=== PATIENT | female | born 1960 | race Caucasian/White ===

== ENCOUNTER 2016-11-15 18:40 | Emergency (ER) ==
--- NOTE | 2016-11-15 19:02 | PROVIDER DOCUMENTATION ---
HPI-Cardiopulmonary Arrest - General Source: EMS - History of Present Illness-C/P Arrest Reason for Code Blue?: full arrest Witnessed arrest?: No Noted by:: family Bystander CPR?: Yes CPR initiated before doctor arrival?: Yes Down-time before ACLS?: unknown Initial Findings: PEA Caesar, no respirations Treatment initiated prior to doctor arrival?: Initiated oxygen, Initiated BVM, Initiated CPR/thumper, Initiated defibrillated, Initiated IV fluids, Initiated epinephrine #mg, Initiated sodium bicarb # amps, Initiated other (calcium, D50, Narcan) Similar Symptoms Previously?: No - Pre-hospital Treatment EMS Initial Findings:: unresponsive, other rhythm (PEA), no respirations EMS Initial HR: 0 EMS Initial D-stick: low, 46 after amp of D50 EMS Initial EKG Rhythm: PEA Pre-hospital Treatment: Initiated oxygen, Initiated BVM, Initiated CPR, Initiated defibrillated, Initiated IV fluids, Initiated epinephrine, Initiated other (calcium, D50, Narcan) - Pronouncement CPR discontinued. Patient pronounced at: 18:47 Family notified?: Yes <Nikki Hobson - Last Filed: 11/15/16 19:49> <Humberto Negro - Last Filed: 11/15/16 20:11> - General Chief Complaint: Full Arrest Stated Complaint: FULL ARREST Time Seen by Provider: 11/15/16 18:38 Allergies/Adverse Reactions: Allergies Allergy/AdvReac Type Severity Reaction Status Date / Time latex Allergy RASH Verified 08/30/15 22:38 Sulfa (Sulfonamide Allergy Unknown Verified 08/30/15 16:29 Antibiotics) terazosin Allergy Unknown Verified 08/30/15 16:29 Home Medications: Home Medication List Medication Instructions Recorded Confirmed Last Taken Type Amitriptyline HCl 75 mg PO BID 08/30/15 08/30/15 Unknown History Ascorbic Acid [Vitamin C] 500 mg PO BID 08/30/15 08/30/15 Unknown History Esomeprazole [Nexium] 40 mg PO DAILY 08/30/15 08/30/15 Unknown History Fish Oil/Dha/Epa [Fish Oil 1,200 1,200 mg PO BID 08/30/15 08/30/15 Unknown History mg Fish Oil] Gabapentin 300 mg PO 4XDAY 08/30/15 08/30/15 Unknown History Ipratropium/Albuterol INH 20 mcg INH DIRECTED 08/30/15 08/30/15 Unknown History [Combivent Respimat Inhaler] Loradil Aenolzen 12 mcg PO BID 08/30/15 08/30/15 Unknown History Lorazepam 0.5 mg PO BID 08/30/15 08/30/15 Unknown History Mometasone Nasal [place] [Nasonex 1 spray LOVE DAILY 08/30/15 08/30/15 Unknown History Nasal [place]] Montelukast [Singulair] 10 mg PO QPM 08/30/15 08/30/15 Unknown History Paroxetine HCl [Paxil] 20 mg PO DAILY 08/30/15 08/30/15 Unknown History Tiotropium [place] Inhaler 1 puff INH RTDAILY 08/30/15 08/30/15 Unknown History [Spiriva] Tramadol [Ultram] 50 mg PO BID PRN 08/30/15 08/30/15 Unknown History - History of Present Illness-C/P Arrest Initial Comments: 56 year old F presents to the ED in cardiac arrest. Per EMS initial call was 1743. Pt was found down unresponsive with CPR started by family. Last time family talked to pt was 1300. EMS arrived on scene at 1752. PT was found in PEA with no respirations. 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 Pt was defibrillated once at 360 angela. Pt was in asystole after defibrillation. On arrival to ED pt was in asystole. states that pt has not been feeling well the past few days and wanted him to go get her some Robatussin and BC powders. He states that around 1300 her medications came in the mail. PT was fine at this time. He states that he fell asleep and woke up and found her in the bed unresponsive around 1730. (Nikki Hobson) Review of Systems - Adult - REVIEW OF SYSTEMS - ADULT ROS:: unobtainable per condition Constitutional: reports: no symptoms reported Eyes: reports: no symptoms reported Ears, Nose, Mouth & Throat: reports: no symptoms reported Cardiovascular: reports: no symptoms reported Respiratory: reports: no symptoms reported Gastrointestinal: reports: no symptoms reported Genitourinary: reports: no symptoms reported Musculoskeletal: reports: no symptoms reported Integumentary: reports: no symptoms reported Neurological: reports: no symptoms reported Psychiatric: reports: no symptoms reported Endocrine: reports: no symptoms reported Hematologic/Lymphatic: reports: no symptoms reported Allergic/Immunologic: reports: no symptoms reported All Other Systems: Reviewed and Negative <Nikki Hobson - Last Filed: 11/15/16 19:49> Past History - Adult - PAST MEDICAL HISTORY-ADULT Review of Records: reports: Nursing Assessment Review Respiratory: reports: asthma, COPD Additional History: CVID - SOCIAL HISTORY Smoking: cigarettes, greater than 1 pack/day <Nikki Hobson - Last Filed: 11/15/16 19:49> Physical Exam-General - PHYSICAL EXAM-ADULT Exam Limited by: cardiac arrest Initial Vital Signs Reviewed: Yes - CONSTITUTIONAL General Appearance: other (unresponsive) - RESPIRATORY Respiratory: other (assisted by ventilations) - CARDIOVASCULAR Cardiovascular: other (asystole, assisted by Gregg device) <Nikki Hobson - Last Filed: 11/15/16 19:49> Departure <Nikki Hobson - Last Filed: 11/15/16 19:49> - Departure Time of Disposition Order: 19:58 Certified Medical Emergency: Emergent <Humberto Negro - Last Filed: 11/15/16 20:11> - Departure DIAGNOSIS: Patient pronounced Disposition: 20 Condition: - Critical Care Note Comments: A 56 y/o F who was brought in with PEA and not exact time period of arrest at presentation was rigor mortis no pulse noted, no further intervention as per family she was unresponsive for more than an hour prior to arrival and attempts by EMS not successful (Humberto Negro) Attestation - Scribe Verification/Attestation Scribe:: Nikki Hobson Acting as Scribe for:: Humberto Negro Scribe documention review:: This chart was documented by a scribe and accurately reflects the service the provider performed and the decisions made by the provider. <Nikki Hobson - Last Filed: 11/15/16 19:49> Physician Attestation - Physician Attestation I, the provider, attest to the following statement:: Humberto Negro Physician documentation Attestation:: This documentation recorded by the scribe accurately reflects the service I personally performed and the decisions made by me. <Nikki Hobson - Last Filed: 11/15/16 19:49>
== END 2016-11-15 21:30 | disposition expired ==
LOC: EDBD → ED 18:40
DX: I46.9 Cardiac arrest, cause unspecified (principal); J45.909 Unspecified asthma, uncomplicated; J44.9 Chronic obstructive pulmonary disease, unspecified; F17.210 Nicotine dependence, cigarettes, uncomplicated; Z79.899 Other long term (current) drug therapy